=== PATIENT | female | born 2000 | race Caucasian/White ===

== ENCOUNTER → 2020-03-06 | Outpatient (CLI) | payer BC ==
[~2020-03-06] MED LIST: MOTRIN 400400 MG/TAB PO; NORCO 325 MG-51 TAB PO
== END ==
LOC: COL.RAD 11:09
DX: E01.0 Iodine-deficiency related diffuse (endemic) goiter (principal)

== ENCOUNTER 2022-03-31 13:17 | Emergency (ER) | payer OTHER ==
[~2022-03-31] VITALS: Ht 170.2 cm; Wt 90.9 kg
[2022-03-31 13:25] VITALS: TEMP 98.3
[2022-03-31] MEDS ORDERED: EPIPEN 2-PAK1 MG/ML IM (14:35)
[2022-03-31 14:45] VITALS: BP 138/69; PULSE 96
[2022-04-01] MEDS ORDERED: ABILIFY5 MG PO (17:49)
[2022-04-01] MEDS ORDERED: ATARAX 25MG25 MG/TAB PO (17:49)
[2022-04-01] MEDS ORDERED: PROZAC40 MG PO (17:49)
[2022-04-01] MEDS ORDERED: SPRINTEC 35 MCG1 TAB PO (18:05)
[2022-04-01] MEDS ORDERED: SEROQUEL50 MG PO (18:06)
== END 2022-03-31 14:51 | disposition home or self-care (01) ==
LOC: COL.ER 13:17
DX: T78.1XXA Other adverse food reactions, not elsewhere classified, initial encounter (principal); R22.1 Localized swelling, mass and lump, neck; Z28.310 Unvaccinated for COVID-19
CPT/HCPCS: J2930; J7030

== ENCOUNTER 2022-03-31 19:47 | Emergency (ER) | payer OTHER ==
[~2022-03-31] VITALS: Ht 170.2 cm; Wt 86.4 kg
[~2022-03-31 19:47] MED LIST changes: +EPIPEN 2-PAK1 MG/ML IM
[2022-03-31 19:53] VITALS: TEMP 98.8
[2022-03-31 22:45] VITALS: BP 129/84; PULSE 107
[2022-04-01] MEDS ORDERED: ABILIFY5 MG PO (17:49)
[2022-04-01] MEDS ORDERED: PROZAC40 MG PO (17:49)
[2022-04-01] MEDS ORDERED: ATARAX 25MG25 MG/TAB PO (17:49)
[2022-04-01] MEDS ORDERED: SPRINTEC 35 MCG1 TAB PO (18:05)
[2022-04-01] MEDS ORDERED: SEROQUEL50 MG PO (18:06)
== END 2022-03-31 23:03 | disposition home or self-care (01) ==
LOC: COL.ER 19:47
DX: T78.1XXA Other adverse food reactions, not elsewhere classified, initial encounter (principal); K14.8 Other diseases of tongue; F41.9 Anxiety disorder, unspecified
CPT/HCPCS: J1200; J2060; J2920; J7030

== ENCOUNTER 2022-04-01 12:36 | Observation (INO) | payer OTHER ==
[~2022-04-01] VITALS: Ht 170.2 cm; Wt 93.7 kg
[2022-04-01 13:24] LABS: BASO % 0.2 % (0.0-2.0); GRAN # 18.4 K/mm3 (1.4-6.5); GRAN % 83.6 % (42.2-75.2); HEMATOCRIT 40.9 % (37.0-47.0); HEMOGLOBIN 13.7 g/dl (12.5-16.0); LYMPH # 2.3 K/mm3 (1.2-3.4); LYMPH % 10.3 % (20.0-51.0); MEAN CELL VOLUME 87 fl (80.0-100.0); MEAN CORPUSCULAR HEMOGLOBIN 29 pg (27-31); MEAN CORPUSCULAR HGB CONC 34 g/dl (33.0-37.0); MEAN PLATELET VOLUME 10.8 fl (7.4-10.4); MONO # 1.1 K/mm3 (0.1-0.6); MONO % 5.2 % (1.7-9.3); PLATELET COUNT 321 K/mm3 (130-400); RED BLOOD COUNT 4.68 M/mm3 (4.10-5.30); REDCELL DISTRIBUTION WIDTH-CV 13.7 % (11.5-14.5)
[2022-04-01 13:43] LABS: ALANINE AMINOTRANSFERASE 8 U/L (0-55); ALBUMIN 3.5 gm/dL (3.5-5.0); ALKALINE PHOSPHATASE 89 U/L (40-150); ANION GAP 11 mmol/L (7-16); AST,SGOT 13 U/L (5-34); BILIRUBIN,TOTAL 0.2 mg/dL (0.2-1.2); BLOOD UREA NITROGEN 11 mg/dL (7-19); CALCIUM 9.3 mg/dL (8.4-10.2); CARBON DIOXIDE 23 mmol/L (22-29); CHLORIDE 107 mmol/L (98-107); CREATININE, serum 0.78 mg/dL (0.57-1.11); GLUCOSE 119 mg/dL (70-99); POTASSIUM 3.7 mmol/L (3.5-4.5); SODIUM 141 mmol/L (136-145); TOTAL PROTEIN 7.6 gm/dL (6.2-8.1)
[2022-04-01 13:50] LABS: TROPONIN-I < 0.010 ng/mL (0.00-0.033)
[2022-04-01 14:37] LABS: COLLECTION METHOD CLEAN CATCH
[2022-04-01 14:47] LABS: PH 8 (5-8); SQUAMOUS EPITHELIAL 0-2 /hpf (0-10); URINE APPEARANCE Clear (CLEAR/HAZY); URINE BACTERIA Rare /hpf (NONE SEEN); URINE BILIRUBIN Negative (NEGATIVE); URINE BLOOD 1+ (NEGATIVE); URINE COLOR Straw (YELLOW); URINE GLUCOSE Negative (NEGATIVE); URINE KETONE Negative (NEGATIVE); URINE LEUKOCYTE ESTERASE Negative (NEGATIVE); URINE NITRATE Negative (NEGATIVE); URINE PROTEIN(semi-quant) Negative (NEGATIVE); URINE RBC 0-2 /hpf (0-2); URINE UROBILINOGEN Negative (NEGATIVE)
[2022-04-01] MEDS ORDERED: PROZAC40 MG PO (17:49)
[2022-04-01] MEDS ORDERED: ABILIFY5 MG PO (17:49)
[2022-04-01] MEDS ORDERED: ATARAX 25MG25 MG/TAB PO (17:49)
[2022-04-01] MEDS ORDERED: SPRINTEC 35 MCG1 TAB PO (18:05)
[2022-04-01] MEDS ORDERED: SEROQUEL50 MG PO (18:06)
--- NOTE | 2022-04-01 18:08 | NUR ---
Arrived to room 351 via wheelchair from ED escorted by mom, Laisha. Oriented to room and policy. VS currenty stable. Med rec completed/updated. Admission assessment complete and unremarkable. Denies pain/nausea/shortness of breath.INT to right [id number] without difficulty. No s/s of infiltration noted. Plan of care discussed for this shift to include antibiotics/monitoring on TELE/VS/reporting any concerns to staff. Verbalizes understanding. Call light in reach. Will monitor.
[2022-04-01 18:09] VITALS: BP 113/75; PULSE 71; TEMP 98.7
--- NOTE | 2022-04-01 18:54 | NUR ---
Report given to principal engineer, MARTELL Castro.
--- NOTE | 2022-04-01 20:28 | NUR ---
PATIENAWAKE ALERT AND RESTING IN BED. PATIENT DOES NOT ENDORSE SHORNTESS OF BREATH, THROAT TIGHTNESS, OR TONGUE SWELLING AT THIS TIME. SEE DOCUMENTED ASSESSMENT. ALL SAFETY MEASURES MAINTAINED. WILL CONTINUE TO MONITOR
[2022-04-01 20:35] VITALS: BP 126/83; PULSE 80; TEMP 99
[2022-04-01 20:47] LABS: MONOSCREEN NEGATIVE
--- NOTE | 2022-04-01 22:45 | NUR ---
PATIENT REPORTED DIZZINESS AND TONGUE SWELLING AT 2210. VITALS TAKEN BP 120/72, O2 99% ON ROOM AIR, HR 80. HOSPITALIST (EMELINA ROOT) AWARE. NO NEW ORDERS AT THIS TIME. RN WILL CONTINUE TO MONITOR.
[2022-04-01 23:20] LABS: STREP SCREEN NEGATIVE
[2022-04-02 00:03] VITALS: BP 103/60; PULSE 78; TEMP 97.6
[2022-04-02 04:25] VITALS: BP 120/74; PULSE 82; TEMP 98.6
[2022-04-02 06:37] LABS: BASO # 0.1 K/mm3 (0.0-0.2); BASO % 0.4 % (0.0-2.0); EOS # 0.1 K/mm3 (0.0-0.7); EOS % 0.4 % (0.0-4.0); GRAN # 8.7 K/mm3 (1.4-6.5); LYMPH # 4.8 K/mm3 (1.2-3.4); MEAN CELL VOLUME 89 fl (80.0-100.0); MEAN CORPUSCULAR HGB CONC 32 g/dl (33.0-37.0); MEAN PLATELET VOLUME 11.5 fl (7.4-10.4); MONO # 0.6 K/mm3 (0.1-0.6); MONO % 3.9 % (1.7-9.3); PLATELET COUNT 262 K/mm3 (130-400); RED BLOOD COUNT 4.04 M/mm3 (4.10-5.30); REDCELL DISTRIBUTION WIDTH-CV 13.9 % (11.5-14.5)
[2022-04-02 06:39] LABS: HEMATOCRIT 36.1 % (37.0-47.0); HEMOGLOBIN 11.7 g/dl (12.5-16.0); MEAN CORPUSCULAR HEMOGLOBIN 29 pg (27-31)
[2022-04-02 06:52] LABS: ALBUMIN 2.7 gm/dL (3.5-5.0); CALCIUM 8.1 mg/dL (8.4-10.2); CREATININE, serum 0.8 mg/dL (0.57-1.11); MAGNESIUM 1.8 mg/dL (1.6-2.6); PHOSPHOROUS 3.6 mg/dL (2.3-4.7); POTASSIUM 3.7 mmol/L (3.5-4.5)
[2022-04-02 07:35] VITALS: BP 107/74; PULSE 87; TEMP 97.4
--- NOTE | 2022-04-02 08:20 | NUR ---
Patient sitting up in bed, reading, upon entering the room. Patient's parents entered the room at the same time as this RN. Patient states her tongue and throat feel swollen still, no swelling is visible. Patient has adequate respirations, all lung sounds CTA. Patient endorses dizziness but denies any other concerns. Call light w/in reach. Patient encouraged to call if any needs arise.
[2022-04-02] MEDS ORDERED: AMOXICILLIN 8751 TAB PO (08:45)
--- NOTE | 2022-04-02 09:34 | NUR ---
Patient discharged. IV and telemetry removed by this RN. All education/instructions discussed w/ patient family at bedside; Patient verbalized understanding and signed appropriate discharge paperwork.
== END 2022-04-02 09:45 | disposition home or self-care (01) ==
LOC: COL.ER 12:36 → MEDICAL 16:02
PROVIDERS: Emergency Medicine; ADMIT Internal Medicine
DX: T42.6X5A Adverse effect of other antiepileptic and sedative-hypnotic drugs, initial encounter (principal); D72.829 Elevated white blood cell count, unspecified; R45.851 Suicidal ideations; Z79.899 Other long term (current) drug therapy
CPT/HCPCS: G0378; J2543; J3370; J7030; J7050; Q9967